=== PATIENT | female | born 1950 | race Caucasian/White ===

== ENCOUNTER 2023-05-03 20:29 | Emergency (ER) | payer OTHER, SELFPAY ==
[2023-05-03 20:31] VITALS: BMI 45.0
[2023-05-03 20:36] VITALS: BP 134/69
[2023-05-03 20:52] LABS: % Basophils 0.5 % (0-2); % Eosinophils 2.6 % (0-6); % Immature Granulocytes 0.4 % (0-0.5); % Lymphocytes 17.6 % (20.5-51.1); % Monocytes 8.3 % (1.7-9.3); % Neutrophils 70.6 % (42.2-75.2); Absolute Basophils 0.1 10^3/uL (0-0.2); Absolute Eosinophils 0.2 10^3/uL (0-0.7); Absolute Lymphocytes 1.6 10^3/uL (1.2-3.4); Absolute Monocytes 0.8 10^3/uL (0.1-0.6); Absolute Neutrophils 6.5 10^3/uL (1.4-6.5); Hematocrit 38.5 % (37.0-47.0); Hemoglobin 13.7 g/dL (12.0-16.0); Mean Corp Hgb Conc. 35.6 g/dL (33.0-37.0); Mean Corpuscular Hgb 33.3 pg (27.0-31.0); Mean Corpuscular Volume 93.4 fL (81.0-99.0); Mean Platelet Volume 10.8 fL (7.4-10.4); Nucleated Red Blood Cells % 0 %; Platelet Count 278 10^3/uL (130-400); Red Blood Cell Count 4.12 10^6/uL (4.20-5.40); Red Cell Dist. Width 12.9 % (11.5-14.5); White Blood Cell Count 9.2 10^3/uL (4.8-10.8)
[2023-05-03 21:00] VITALS: BP 127/60
[2023-05-03 21:11] LABS: ALT (SGPT) 22 U/L (0-35); AST (SGOT) 30 U/L (14-36); Albumin 3.8 g/dl (3.5-5.0); Alkaline Phosphatase 54 U/L (38-126); Blood Urea Nitrogen 31 mg/dl (7-17); Calcium 8.9 mg/dl (8.4-10.2); Carbon Dioxide 26 mmol/L (22-30); Chloride 100 mmol/L (98-107); Estimated Creatinine Clearance 67 ml/min; Glucose 175 mg/dl (70-99); Sodium 138 mmol/L (135-145); Total Bilirubin 0.4 mg/dl (0.2-1.3); Total Protein 6.8 g/dl (6.3-8.2); eGFR > 60.00
[2023-05-03 22:00] VITALS: BP 132/70
--- NOTE | 2023-05-03 22:29 | ED.GENMED ---
History of Present Illness
General
Chief Complaint: Fainting/Passed Out
Source: patient and family
Exam Limitations: none
Time Seen by Provider: 05/03/23 22:17
Travel History
Have you had any contact with someone who has COVID-19?: No
Do you have any symptoms of coronavirus? Fever > 100 degrees, chills, cough, shortness of breath, sore throat, loss of taste or smell, muscle aches, or headache?: No
History of Present Illness
History of Present Illness:
See MDM
Past History
Past History
ED Past Medical History: HTN, Hypercholesterolemia and Hypothyroidism
ED Past Surgical History: Orthopedic
Social History
Tobacco: Non-smoker
Alcohol: None
Phy Exam
Physical Exam
Physical Exam:
See MDM
Course
Orders/Labs/Results
Orders:
Orders
05/03/23 20:37
Electrocardiogram (*1) Urgent
Reason for Study: Syncope
EKG- Treatment ONCE
05/03/23 20:40
CMP [Comprehensive Metabolic Panel] Urgent
Complete Blood Count/With Diff Urgent
05/03/23 21:40
Troponin I Urgent
05/03/23 22:28
0.9% Sodium Chloride 1000 ml [Nss] 1,000 ml IV BOLUS
Abdomen Xray - 1 View [CR Abdomen - 1 View] Urgent
Comment:
Reason For Exam: intermittent diarrhea and constipation
Abnormal Lab Results
05/03/23
20:40
RBC 4.12 L 10^6/uL
(4.20-5.40)
MCH 33.3 H pg
(27.0-31.0)
MPV 10.8 H fL
(7.4-10.4)
Absolute Monos (auto) 0.8 H 10^3/uL
(0.1-0.6)
Lymphocytes % 17.6 L %
(20.5-51.1)
BUN 31 H mg/dl
(7-17)
Glucose 175 H mg/dl
(70-99)
05/03/23 20:40
05/03/23 20:40
Vital Signs
Initial and Last Documented VS:
Initial Vital Signs
Temp Pulse Resp Pulse Ox
98.1 F 65 18 99
05/03/23 20:31 05/03/23 20:31 05/03/23 20:31 05/03/23 20:31
Last Documented Vital Signs
Temp Pulse Resp BP Pulse Ox
98.1 F 62 18 132/70 96
05/03/23 20:31 05/03/23 22:45 05/03/23 22:45 05/03/23 22:00 05/03/23 22:45
MDM/Problems Addressed
Differential Diagnosis Includes:
HPI and MDM Narrative:
72-year-old female presenting with syncopal event. This occurred while she was on the bathroom. She has been dealing with intermittent diarrhea past week or so. Family noticed that she was pale. She came to in a minute or 2. Patient denying any
chest pain or shortness of breath or palpitations. Family believes that she is not drinking enough water.
On exam, she is well-appearing nontoxic. She is mildly dehydrated. Will give IV fluids. Given syncopal event, will add troponin. Given the intermittent constipation and diarrhea, will obtain x-ray to look for large stool burden
Physical exam
General: Well appearing and non-toxic
HEENT: protecting airway. Dry mucous membranes
Neck: appears supple
CV: No evidence of cyanosis. Regular rate and rhythm
Resp: No accessory muscle use
Abd: Non-distended and nontender
Extremities: No deformities
Neuro: alert
Psych: Normal affect
Skin: Intact
Problems Addressed including Acute and Chronic Conditions affecting care:
1. Syncope
Acuity: acute
Prognosis: stable
Details: Likely vasovagal. EKG within normal limits. Will obtain troponin
2. Dehydration
Acuity: acute
Prognosis: stable
Details: Will provide IV fluids. I did encourage increased p.o. fluid intake at home
3. Diarrhea
Acuity: acute
Prognosis: stable
Details: Will obtain x-ray looking for any evidence of constipation given increased use of Imodium
Updates
Troponin negative. Abdominal x-ray shows stool in the ascending colon. We discussed taking Metamucil and refraining from too much Imodium
I discussed having her blood sugar reevaluated by PCP
Differential Diagnosis (but not limited to): Constipation, dehydration, orthostasis
Testing considered: CT abdomen/pelvis but no tenderness elicited
Drug therapy (if applicable): OTC meds, please see d/c instruction regarding Rx drugs
Amount and/or Complexity of Data Reviewed
Clinical info obtained from: Patient
External data reviewed: N/A
Labs I independently reviewed (but not limited to): Mild hyperglycemia, troponin normal
Radiology: X-ray independently reviewed: No large stool burden noted on abdominal x-ray
Pulse Ox: not hypoxic
EKG independently reviewed: Sinus rhythm, normal axis, no STEMI
Automation Technologist: Sinus rhythm
Critical Care: N/A
Risk of Complication:
Social Determinants of health: Good social support
Discussed with other providers: N/A
Escalation of Care includes Admit/Obs: After being observed in the Emergency Department, pt stable for discharge.
Occasional wrong word or 'sound a like' substitutions may have occurred due to the inherent limitations of voice recognition software. Read the chart carefully and recognize, using context, where substitutions have occurred.
*Critical Care Note
Total Time (30-74mins, 75-104mins- exclusive of procedures): Not Applicable
ED Attending Note
-
Portions of this chart may have been created with voice recognition software.� Occasional wrong word or��sound alike� substitutions may have occurred due to the inherent limitations of voice recognition software.
Discharge Plan
Departure
Patient Disposition: Home (Routine Discharge)
Date of Disposition: 05/03/23
Time of Disposition: 23:31
Patient with high blood pressure during this ER visit?: No
Discharge Problem:
Syncope, Dehydration
Instructions: Syncope (Fainting) (DC)
Referrals:
Satya Amado MD [Family Provider] -
Activity Restrictions/Additional Instructions:
Please return for any worsening symptoms.
You may return at any time if you have further concerns.
Please follow up with your doctor at the first available appointment, preferably this week.
Please start taking Metamucil to help with your stools.
Thank you for choosing [facility].
Interventions
Interventions:
*Risk Screen - Suicide Last Done: 05/03/23 20:31
*General Assessment Last Done: 05/03/23 20:31
*Neglect/Abuse Screening Last Done: 05/03/23 20:31
ED- Fall Risk Assessment Last Done: 05/03/23 22:10
*ED COVID-19 Vaccine History Last Done: 05/03/23 20:31
ED- Cardiac Assessment Last Done: 05/03/23 22:10
ED- Neurological Assessment Last Done: 05/03/23 22:10
[2023-05-03] MEDS: NSS 1000 IV (22:50)
[2023-05-03 23:00] VITALS: BP 139/78
[2023-05-03 23:12] LABS: Troponin I < 0.012 ng/ml
== END 2023-05-03 23:52 | disposition home or self-care (01) ==
LOC: EMR 20:29
PROVIDERS: Emergency Medicine; EMERGENCY PHYSICIAN Student in an Organized Health Care Education/Training Program; FAMILY PHYSICIAN Internal Medicine
DX: R55 Syncope and collapse (principal); E86.0 Dehydration; I10 Essential (primary) hypertension; E78.00 Pure hypercholesterolemia, unspecified; E03.9 Hypothyroidism, unspecified
CPT/HCPCS: 99283; 96360; 74018; 80053; 84484; 85025; 93005

== ENCOUNTER 2023-07-29 14:15 | Inpatient (IN) | payer OTHER, SELFPAY ==
[2023-07-29] VITALS (7 sets, daily range): BP systolic 122–147; BP diastolic 67–86; BMI 43.7
--- NOTE | 2023-07-29 13:10 | ED.GENMED ---
History of Present Illness
General
Chief Complaint: Breathing Problem
Source: patient and family
Time Seen by Provider: 07/29/23 12:53
Travel History
Have you had any contact with someone who has COVID-19?: No
Do you have any symptoms of coronavirus? Fever > 100 degrees, chills, cough, shortness of breath, sore throat, loss of taste or smell, muscle aches, or headache?: No
History of Present Illness
History of Present Illness:
72-year-old female with past medical history of hypertension, hyperlipidemia, hypothyroidism, psoriasis presenting to the emergency department for evaluation of fever, lightheadedness, cough and shortness of breath with symptoms that started this
past , went to urgent care yesterday and was diagnosed with pneumonia. Patient was started on Augmentin, albuterol and benzonatate but has not had any relief. Family reports patient's pulse ox this morning was 88% on room air prompting
them to bring her to the ER today. Patient is on an immunosuppressant for her psoriasis which she gets once monthly injections. She was unaware of any fevers at home but did have a temperature of 99.9 while in triage. No abdominal pain, nausea,
vomiting, urinary symptoms or any other concerns presently. Of note, patient did have COVID at the beginning of June.
Past History
Past History
ED Past Medical History: HTN, Hypercholesterolemia and Hypothyroidism
ED Past Surgical History: Appendectomy, Orthopedic and Other
Social History
Tobacco: Non-smoker
Alcohol: None
Drug: None
Personal:
Living: with family
Review of Systems
Review of Systems
All Other Systems: ROS reviewed and negative except as documented in HPI and ROS
Phy Exam
Physical Exam
Physical Exam:
GENERAL: Alert , in no apparent distress
Head: Normocephalic/atraumatic
EYE: conjunctiva clear
NECK: Supple
ENT: o/p clr, mmm.
CARDIAC: Regular rate and rhythm
LUNGS: Clear breath sounds bilaterally, no acute respiratory distress, no wheezes/rales/rhonchi, O2 sat between 91 and 93% on room air, 96% on 2 L
NEUROLOGICAL: Alert and oriented
SKIN: Hot to the touch, dry, skin intact.
MUSCULOSKELETAL: well perfused.
PSYCH: Normal and appropriate interaction.
Scores
Heart Failure Risk
Heart Failure Risk Score: Not Applicable
Heart Score for Chest Pain Patients
STEMI patient?: Not applicable
Withdrawal Assessment of Alcohol
Withdrawal Assessment Completed?: Not applicable
Course
Orders/Labs/Results
Orders:
Orders
07/29/23 12:55
CR Chest - 2 Views Urgent
Comment:
Reason For Exam: SOB, fever
07/29/23 12:56
Acetaminophen [Tylenol] 650 mg PO NOW STA
07/29/23 13:02
Basic Metabolic Panel Urgent
Complete Blood Count/With Diff Urgent
Lactic Acid Q4H
Comment: CANCEL 2nd LACTIC ACID IF 1st LACTIC ACID IS LESS THAN 2
Blood Culture Q30M
MAYRA Source: Blood/Venous
Specimen Description:
Influenza A+B Rapid Molecular Urgent
MAYRA Source: Nasal Swab
Specimen Description:
07/29/23 13:03
COVID-19 Antigen Urgent
Source: Nasal Swab
07/29/23 13:21
Blood Culture Q30M
MAYRA Source: Blood/Venous
Specimen Description:
07/29/23 13:37
0.9% Sodium Chloride 1000 ml [Nss] 1,000 ml IV BOLUS
07/29/23 14:03
CefTRIAXone [Rocephin] 1,000 mg IV NOW STA
Doxycycline [Vibramycin] 100 mg PO NOW STA
07/29/23 14:09
Admit/Transfer Patient As Directed
Co-Sign Provider:
Level of Care: Inpatient admission
Assign to:: Medical/Surgical
Physician / Group: Hospitalist
Diagnosis: Pneumonia
Reason for Hospitalization: .
Expected length of stay greater than two midnights?: Yes
ELOS- Estimated Length of Stay in days: 3
I certify the patient meets the requirements for IP care: Yes
07/29/23 17:00
Lactic Acid Q4H
Comment: CANCEL 2nd LACTIC ACID IF 1st LACTIC ACID IS LESS THAN 2
Abnormal Lab Results
07/29/23
13:02
RBC 4.01 L 10^6/uL
(4.20-5.40)
MCH 32.7 H pg
(27.0-31.0)
MPV 10.9 H fL
(7.4-10.4)
Absolute Lymphs (auto) 0.8 L 10^3/uL
(1.2-3.4)
Absolute Monos (auto) 0.9 H 10^3/uL
(0.1-0.6)
Lymphocytes % 11.5 L %
(20.5-51.1)
Monocytes % 12.4 H %
(1.7-9.3)
BUN 22 H mg/dl
(7-17)
Glucose 183 H mg/dl
(70-99)
Lactic Acid 2.2 H mmol/L
(0.7-2.0)
07/29/23 13:02
07/29/23 13:02
Vital Signs
Initial and Last Documented VS:
Initial Vital Signs
Temp Pulse Resp BP Pulse Ox
99.9 F 77 18 139/86 93
07/29/23 12:37 07/29/23 12:37 07/29/23 12:37 07/29/23 12:37 07/29/23 12:37
Last Documented Vital Signs
Temp Pulse Resp BP Pulse Ox
99.9 F 75 16 126/67 93
07/29/23 12:37 07/29/23 12:52 07/29/23 12:52 07/29/23 12:52 07/29/23 12:52
MDM/Problems Addressed
Differential Diagnosis Includes:
Pneumonia, COVID, flu, viral syndrome 72-year-old female presenting to the emergency department for evaluation of cough, low-grade fever, hypoxia and generally feeling unwell x 4 days. Diagnosed with pneumonia at urgent care yesterday although
patient's daughter states the radiologist did not feel there were signs of pneumonia on the chest x-ray. No medications were given prior to arrival outside of the antibiotics. Tylenol ordered for fever. Patient to remain on 2 L for her mild
hypoxia. Will check cultures and lactic acid given patient is on an immunosuppressant agent. Anticipate admission. Family is agreeable with plan.
Chronic conditions affecting care: Immunosuppressed
Acute Exacerbation and/or Progression of Chronic Illness: Immunosuppressed
*Radiology
Radiology exam reviewed: preliminary read by ED provider (Mildly hypoinflated but no gross consolidation)
*Pulse Oximetry
Patient hypoxic: no
*Tanning Salon Attendant Interpretation
Rate: normal
Rhythm: sinus
*Critical Care Note
Total Time (30-74mins, 75-104mins- exclusive of procedures): Not Applicable
Patient Management
Discussion with other providers: Hospitalist
Escalation/DeEscalation of care consider admission/obs:
Patient remains stable on 2 L via nasal cannula. Labs largely unremarkable the patient does have a slight elevation in her lactic acid. Will treat with 1 L IV fluids. Given her immunocompromise state combined with her current fever and need for
supportive care on oxygen will admit for antibiotics and monitoring. Hospitalist team is aware and accepts for continued evaluation and treatment.
ED Attending Note
-
Portions of this chart may have been created with voice recognition software.� Occasional wrong word or��sound alike� substitutions may have occurred due to the inherent limitations of voice recognition software.
Discharge Plan
Departure
Patient Disposition: Admit
Date of Disposition: 07/29/23
Time of Disposition: 14:05
Presentation/result/management discussed w/ accepting MD/DO: Hospitalist
Discharge Problem:
Pneumonia
Referrals:
Satya Amado MD [Family Provider] -
Interventions
Interventions:
*Risk Screen - Suicide Last Done: 07/29/23 12:37
*General Assessment Last Done: 07/29/23 12:37
*Neglect/Abuse Screening Last Done: 07/29/23 12:37
*ED COVID-19 Vaccine History Last Done: 07/29/23 12:37
ED- Cardiac Assessment Last Done: 07/29/23 12:53
ED- Pulmonary Assessment Last Done: 07/29/23 12:53
Discharge Date and Time
Print Language: GUINEAN
[2023-07-29] MEDS: TYLENOL 650 MG PO (13:18)
[2023-07-29 13:20] LABS: % Basophils 0.6 % (0-2); % Immature Granulocytes 0.4 % (0-0.5); % Lymphocytes 11.5 % (20.5-51.1); % Monocytes 12.4 % (1.7-9.3); % Neutrophils 74.1 % (42.2-75.2); Absolute Eosinophils 0.1 10^3/uL (0-0.7); Absolute Lymphocytes 0.8 10^3/uL (1.2-3.4); Absolute Monocytes 0.9 10^3/uL (0.1-0.6); Absolute Neutrophils 5.3 10^3/uL (1.4-6.5); Hemoglobin 13.1 g/dL (12.0-16.0); Mean Corp Hgb Conc. 35.4 g/dL (33.0-37.0); Mean Corpuscular Hgb 32.7 pg (27.0-31.0); Mean Corpuscular Volume 92.3 fL (81.0-99.0); Mean Platelet Volume 10.9 fL (7.4-10.4); Nucleated Red Blood Cells % 0 %; Platelet Count 235 10^3/uL (130-400); Red Blood Cell Count 4.01 10^6/uL (4.20-5.40); Red Cell Dist. Width 12.4 % (11.5-14.5); White Blood Cell Count 7.2 10^3/uL (4.8-10.8)
[2023-07-29 13:29] LABS: Lactic Acid 2.2 mmol/L (0.7-2.0)
[2023-07-29 13:33] LABS: COVID-19 Antigen Negative (Negative)
[2023-07-29 13:49] LABS: Blood Urea Nitrogen 22 mg/dl (7-17); Calcium 8.7 mg/dl (8.4-10.2); Carbon Dioxide 24 mmol/L (22-30); Chloride 101 mmol/L (98-107); Glucose 183 mg/dl (70-99); Potassium 3.7 mmol/L (3.5-5.1); Sodium 136 mmol/L (135-145); eGFR > 60.00
[2023-07-29] MEDS: NSS 1000 IV (13:49)
--- NOTE | 2023-07-29 14:09 | HPS.HSE ---
Family Physician
-
Family Physician: Satya Amado
Chief Complaint
-
Cough and hypoxia for few days during
History of Present Illness
72 years old female came in from home. Patient started to have cough and weakness 3-4 days ago. Her granddaughter who lives at home with her had cold-like symptoms a week ago. Patient went to urgent care and was given albuterol with Augmentin.
Patient took the medicine but did not feel much better. She continued to have yellowish colored sputum with cough. She had muscle aches and was found to have hypoxia with oxygen saturation around 88 to 87% at home. Patient denied chest pain. She
reported mild shortness of breath. She was brought into the emergency room was found to have mild lactic acidosis, she had low-grade temperature around 99.9. No GI symptoms.
Medical History
Past Medical History
Past Medical History: Reports Other (Psoriasis, hypertension, hyperlipidemia, hypothyroidism)
Past Surgical History: Reports Other (No recent major surgery)
Social History
Alcohol: None
Drug: None
Living: With Family
Employment: Retired
Family History
Family History: Not pertinent
Allergies / Home Medications
Allergies reflects when Allergies were last updated in [employer].
Home Medications with original date entered in [employer]
Allergy/Medication List:
Allergies
Allergy/AdvReac Type Severity Reaction Status Date / Time
No Known Allergies Allergy Verified 07/29/23 12:36
Home Medications
albuterol sulfate 90 mcg/actuation aerosol inhaler (ProAir HFA) 2 puff inhalation R Q6HPRN PRN sob 07/29/23
amlodipine 5 mg tablet (Norvasc) 5 mg PO BID Blood Pressure 07/29/23
amoxicillin 875 mg-potassium clavulanate 125 mg tablet 1 tab PO BID Infection 07/29/23
atorvastatin 20 mg tablet (Lipitor) 20 mg PO DAILY High Cholesterol 07/29/23
benzonatate 200 mg capsule 200 mg PO TIDPRN PRN cough 07/29/23
celecoxib 200 mg capsule 200 mg PO BID Pain 07/29/23
levothyroxine 137 mcg tablet (Synthroid) 137 mcg PO DAILY Thyroid 07/29/23
losartan 100 mg-hydrochlorothiazide 25 mg tablet 1 tab PO DAILY Blood Pressure 07/29/23
metoprolol succinate 100 mg tablet,extended release 24 hr (Toprol XL) 100 mg PO DAILY Blood Pressure 07/29/23
secukinumab 150 mg/mL subcutaneous syringe (Cosentyx) 150 mg SC Q4W psoriasis 07/29/23
Review of Systems
-
History Source: Patient
A 12 point ROS was completed and negative except as noted: Yes
Constitutional: Reports Chills
EENT: Denies Sore Throat or Runny Nose
Respiratory: Reports Cough and Trouble Breathing
Cardiac: Denies Chest Pain
Abdomen/GI: Denies Abdominal Pain
: Denies Dysuria
Musculoskeletal: Reports Joint Pain and Muscle Pain; Denies Joint Swelling
Skin: Denies Itching
Neurological: Reports Weakness; Denies Headache
Endocrine: Denies Temp Intolerance
Hematologic/Lymphatic: Denies Bruising
Psych: Denies Panic Disorder
Physical Exam
Vital Signs
Vital Signs
Temp Pulse Resp BP Pulse Ox
99.9 F 75 16 126/67 93
07/29/23 12:37 07/29/23 12:52 07/29/23 12:52 07/29/23 12:52 07/29/23 12:52
Physical Exam
General: No Apparent Distress, Conversant and Obese
HEENT: Moist mucous membranes and Atraumatic
Respiratory: Rales (At bilateral bases) and Decreased Breath Sounds; No Wheezes
Cardiac: S1/S2 and Regular Rhythm
GI: Soft, Non Tender and Non Distended
Rectal: No Maroon Stools
Genito-urinary: No costovertebral tender; No Drake
Musculoskeletal: No Clubbing, No Cyanosis and No Edema
Skin: Warm; No Jaundice
Neuro: AO x 3 and Nonfocal/grossly intact; No Slurred Speech or Tremors
Psych: Calm and Intact Judgment/Insight
Laboratory Results
-
07/29/23 13:02
07/29/23 13:02
Laboratory Results
Lactic Acid 2.2 mmol/L (0.7-2.0) H 07/29/23 13:02
Impression/Plan
-
72 years old female presented with pneumonia that failed outpatient treatment
#Community-acquired pneumonia
Patient presented with cough, shortness of breath, sputum production, low-grade temperature with chills at home.
Low oxygen saturation 93% on arrival but reportedly was 87% at home
Currently she is not in distress.
Admit the patient to the
Continue with intravenous Rocephin and Doxy start
Do blood culture
Negative COVID and influenza screen
Tessalon and Robitussin for cough
Tylenol for muscle aches/fevers
Monitor temperature curve, oxygen saturation
CAT scan of the chest to determine severity of pneumonia as chest x-ray did not show definitive infiltrate/consolidation
# Hypoxia only.
Will monitor oxygen saturation
# History of psoriasis. Reportedly only skin involvement with no joints.
#Primary hypertension, continue bloody pain, metoprolol. Monitor and put holding parameters for hypotension
#Hyperlipidemia, no changes intended
Hypothyroidism, no changes intended
#Lactic acidosis, trend lactic acid. Continue to treat pneumonia
#DVT prophylaxis
#Obesity
Total time spent to see the patient, examine the patient on the floor, review data and lab results, discuss treatment plan with patient, family at bedside, ER doctor, nursing staff around 75 minutes
--- NOTE | 2023-07-29 14:11 | EDRN ---
Pt tried to get out of bed while father left the room. This nurse found patient standing at the side of the bed. Pt advised that he needs to stay in bed due to his weakness, but he states he wants to be out of bed. Pt directed back into bed by
staff, told to use call segal and not get up again. Father back at bedside. Pt advised that he is a fall risk and not to try and get up without assistance. Pt verbalizes understanding.
[2023-07-29] MEDS: ROCEPHIN 1000 MG IV (14:19)
[2023-07-29] MEDS: VIBRAMYCIN 100 MG PO (14:19)
--- NOTE | 2023-07-29 14:21 | PHANOTE ---
Med Rec Note- patient stated she takes lorazepam every morning but no pharmacy or ecw or pdmp records.
[2023-07-29] MEDS: TESSALON PERLES 200 MG PO ×2 (16:03→23:20)
[2023-07-29 18:36] LABS: NT-proBNP 363 pg/ml
[2023-07-29] MEDS: CELEBREX 200 MG PO (19:41)
[2023-07-29] MEDS: HEPARIN 5000 UNITS SC (19:41)
[2023-07-29] MEDS: NORVASC 5 MG PO (19:42)
[2023-07-29] MEDS: TYLENOL 1000 MG PO (19:49)
[2023-07-30] MEDS: SYNTHROID 137 MCG PO (05:48)
[2023-07-30 05:56] LABS: Hematocrit 35.4 % (37.0-47.0); Hemoglobin 12.3 g/dL (12.0-16.0); Mean Corp Hgb Conc. 34.7 g/dL (33.0-37.0); Mean Corpuscular Hgb 32.9 pg (27.0-31.0); Mean Corpuscular Volume 94.7 fL (81.0-99.0); Mean Platelet Volume 11.1 fL (7.4-10.4); Platelet Count 200 10^3/uL (130-400); Red Blood Cell Count 3.74 10^6/uL (4.20-5.40); Red Cell Dist. Width 12.3 % (11.5-14.5); White Blood Cell Count 4.8 10^3/uL (4.8-10.8)
[2023-07-30 07:00] VITALS: BP 130/63
[2023-07-30 07:02] LABS: Blood Urea Nitrogen 23 mg/dl (7-17); Calcium 8.1 mg/dl (8.4-10.2); Carbon Dioxide 27 mmol/L (22-30); Chloride 103 mmol/L (98-107); Estimated Creatinine Clearance 96 ml/min; Glucose 118 mg/dl (70-99); Potassium 3.6 mmol/L (3.5-5.1); Sodium 137 mmol/L (135-145); eGFR > 60.00
[2023-07-30] MEDS: VIBRAMYCIN 100 MG PO ×2 (07:58→20:14)
[2023-07-30] MEDS: TESSALON PERLES 200 MG PO ×3 (07:59→21:35)
[2023-07-30] MEDS: TOPROL XL 100 MG PO (07:59)
[2023-07-30] MEDS: LIPITOR 20 MG PO (07:59)
[2023-07-30] MEDS: CELEBREX 200 MG PO ×2 (07:59→20:14)
[2023-07-30] MEDS: NORVASC 5 MG PO ×2 (07:59→20:14)
[2023-07-30] MEDS: HEPARIN 5000 UNITS SC ×2 (08:00→20:14)
[2023-07-30] MEDS: SOLU-MEDROL PF 40 MG IV (08:46)
--- NOTE | 2023-07-30 11:12 | W.PN.HOSP.TC ---
Today's Communication/Plan
-
.
Assessment / Plan
Assessment / Plan
Physical Exam
General: No Apparent Distress, Conversant and Obese
HEENT: Moist mucous membranes and Atraumatic
Respiratory: mild expiratory wheezes.
Cardiac: S1/S2 and Regular Rhythm
GI: Soft, Non Tender and Non Distended
Rectal: No Maroon Stools
Genito-urinary: No costovertebral tender; No Drake
Musculoskeletal: No Clubbing, No Cyanosis and No Edema
Skin: Warm; No Jaundice
Neuro: AO x 3 and Nonfocal/grossly intact; No Slurred Speech or Tremors
Psych: Calm and Intact Judgment/Insight
72 years old female presented with pneumonia that failed outpatient treatment
# Acute viral bronchitis
Positive sick contact
still cough but no sob
Will c/w Tessalon
Add IV Steroid to help with cough and wheezes.
Empiric ABx
Wean off O2
Normal Pro-BNP, will check echo
# Hypoxia only.
Wean off O2
# History of psoriasis. Reportedly only skin involvement with no joints.
#Primary hypertension, continue Amlodipine, metoprolol. Monitor and put holding parameters for hypotension
#Hyperlipidemia, no changes intended
Hypothyroidism, no changes intended
#Lactic acidosis, lactic acid came down to normal .
#DVT prophylaxis
#Obesity
Total time spent to see the patient, examine the patient on the floor, review data and lab results, discuss treatment plan with patient, family, nursing staff around 59 minutes
Anticipated Discharge: 24 - 48 hours
Subjective/Interval History
-
Date of Service: July 30, 2023
No chest pain
No sob
Less cough, reports mild wheezes.
Objective Data
-
Labs:
Laboratory Results
07/30/23
05:45
WBC 4.8
Hgb 12.3
Hct 35.4 L
Plt Count 200
Sodium 137
Potassium 3.6
Chloride 103
Carbon Dioxide 27
BUN 23 H
Creatinine 0.6
Glucose 118 H
Calcium 8.1 L
Vital Signs:
Vital Signs
Temp Pulse Resp BP Pulse Ox
98.2 F 68 18 130/63 98
07/30/23 07:00 07/30/23 07:59 07/30/23 07:00 07/30/23 07:59 07/30/23 07:00
I&O
07/29/23 07/30/23 07/31/23
06:59 06:59 06:59
Intake Total 600 / 600
Balance 600 / 600
[2023-07-30] MEDS: STERILE WATER FOR INJECTION 10 ML IV (14:17)
[2023-07-30] MEDS: ROBITUSSIN DM 10 ML PO (14:17)
[2023-07-30] MEDS: ROCEPHIN 1000 MG IV (14:21)
--- NOTE | 2023-07-30 15:22 | CM ---
Pt off unit. Met with pts daughter and granddaughter at bedside
Pt lives with her daughter and granddaughter in a one story home
Independent, ambulates with cane or rolling walker
DME - rolling walker, cane
SNF - [facility] in Past
HH - [facility] in past
Has ride when d/c'ed with daughter
PCP - Dr Ronnell Cortés
Pharm - [facility]
CM will follow for d/c needs
Plan - anticipate home no needs
--- NOTE | 2023-07-30 15:47 | CARDSERVLU ---
Echocardiogram with Lumason completed after protocol screening completed. Allergies verified.
Patent IV site: __Right hand site clear___
IV site flushed with 0.9% NaCl pre and post administration.
Diluted bolus method utilized to enhance visualization of ventricular roca.
Total volume given: __4__ mL
Patient tolerated all procedures well without complications.
[2023-07-30] MEDS: ProAIR HFA INHALER 2 PUFF INH (19:19)
[2023-07-30 23:05] VITALS: BP 137/80
[2023-07-31] MEDS: MELATONIN 5 MG PO ×2 (00:16→22:53)
[2023-07-31] MEDS: SYNTHROID 137 MCG PO (05:30)
[2023-07-31 07:30] VITALS: BP 133/66
[2023-07-31] MEDS: XOPENEX 0.63 MG INHALANT SOLUTION 0.630000000000000004 MG INH ×3 (08:49→19:40)
[2023-07-31] MEDS: VIBRAMYCIN 100 MG PO ×2 (08:51→20:00)
[2023-07-31] MEDS: NORVASC 5 MG PO ×2 (08:51→20:00)
[2023-07-31] MEDS: TOPROL XL 100 MG PO (08:51)
[2023-07-31] MEDS: CELEBREX 200 MG PO ×2 (08:51→20:00)
[2023-07-31] MEDS: TESSALON PERLES 200 MG PO ×3 (08:51→22:53)
[2023-07-31] MEDS: LIPITOR 20 MG PO (08:51)
[2023-07-31] MEDS: MIRALAX 17 GRAMS PO (08:52)
[2023-07-31] MEDS: HEPARIN 5000 UNITS SC ×2 (08:52→20:00)
[2023-07-31] MEDS: DULCOLAX 10 MG PO (08:56)
[2023-07-31] MEDS: ROBITUSSIN DM 10 ML PO ×4 (08:56→22:53)
--- NOTE | 2023-07-31 10:30 | W.PN.HOSP.TC ---
Today's Communication/Plan
-
likely dc in am
Assessment / Plan
Assessment / Plan
Physical Exam
General: No Apparent Distress, Conversant and Obese
HEENT: Moist mucous membranes and Atraumatic
Respiratory: mild expiratory wheezes.
Cardiac: S1/S2 and Regular Rhythm
GI: Soft, Non Tender and Non Distended
Rectal: No Maroon Stools
Genito-urinary: No costovertebral tender; No Drake
Musculoskeletal: No Clubbing, No Cyanosis and No Edema
Skin: Warm; No Jaundice
Neuro: AO x 3 and Nonfocal/grossly intact; No Slurred Speech or Tremors
Psych: Calm and Intact Judgment/Insight
72 years old female presented with pneumonia that failed outpatient treatment
# Acute viral bronchitis
Positive sick contact
No wheezes heard but patient hears wheezes. Clinical features consistent with viral bronchitis
Continue with Tessalon, will make Robitussin [id number]. Will add Xopenex nebulizer to avoid palpitations. Another dose of IV steroid. Continue with empiric antibiotics for total of 5 days.
She is off oxygen now. No fevers. Sputum culture: No growth. Blood culture no growth
Normal Pro-BNP, echocardiogram showed LVEF 60 --65%, no regional wall motion abnormality. Normal diastolic function. Mild aortic stenosis. Mild tricuspid regurgitation.
# Hypoxia only.
Off oxygen now
# Constipation. Will give Dulcolax and MiraLAX
# History of psoriasis. Reportedly only skin involvement with no joints.
#Primary hypertension, continue Amlodipine, metoprolol. Monitor and put holding parameters for hypotension
#Hyperlipidemia, no changes intended
Hypothyroidism, no changes intended
#Lactic acidosis, lactic acid came down to normal .
#DVT prophylaxis
#Obesity
Total time spent to see the patient, examine the patient on the floor, review data and lab results, discuss treatment plan with patient, family, nursing staff around 55 minutes
Anticipated Discharge: Within 24 hours
Subjective/Interval History
-
Date of Service: July 31, 2023
Objective Data
-
Vital Signs:
Vital Signs
Temp Pulse Resp BP Pulse Ox
97.7 F 69 16 133/66 97
07/31/23 07:30 07/31/23 08:53 07/31/23 08:53 07/31/23 07:30 07/31/23 08:53
I&O
07/30/23 07/31/23 08/01/23
06:59 06:59 06:59
Intake Total 600 / 600 1680 / 1680
Balance 600 / 600 1680 / 1680
[2023-07-31] MEDS: TYLENOL 1000 MG PO (10:50)
[2023-07-31] MEDS: SOLU-MEDROL PF 20 MG IV (11:19)
[2023-07-31] MEDS: ROCEPHIN 1000 MG IV (14:33)
[2023-07-31] MEDS: STERILE WATER FOR INJECTION 10 ML IV (14:34)
--- NOTE | 2023-07-31 15:09 | CM ---
Case management following for d/c planning
Reviewed chart
Remains on steroids
Prob d/c tomorrow
CM to follow for needs
Plan - home no needs
[2023-07-31 15:15] VITALS: BP 122/67
[2023-07-31 23:00] VITALS: BP 150/83
[2023-08-01 06:00] VITALS: BMI 45.2
[2023-08-01] MEDS: SYNTHROID 137 MCG PO (06:18)
[2023-08-01] MEDS: ROBITUSSIN DM 10 ML PO (06:19)
[2023-08-01 07:00] VITALS: BP 154/73
[2023-08-01] MEDS: XOPENEX 0.63 MG INHALANT SOLUTION 0.630000000000000004 MG INH (07:52)
[2023-08-01] MEDS: NORVASC 5 MG PO (08:12)
[2023-08-01] MEDS: LIPITOR 20 MG PO (08:12)
[2023-08-01] MEDS: CELEBREX 200 MG PO (08:13)
[2023-08-01] MEDS: VIBRAMYCIN 100 MG PO (08:13)
[2023-08-01] MEDS: TESSALON PERLES 200 MG PO (08:13)
[2023-08-01] MEDS: TOPROL XL 100 MG PO (08:13)
[2023-08-01] MEDS: DULCOLAX PO (08:14)
[2023-08-01] MEDS: SOLU-MEDROL PF 20 MG IV (08:14)
[2023-08-01] MEDS: MIRALAX PO (08:14)
[2023-08-01] MEDS: HEPARIN 5000 UNITS SC (08:15)
--- NOTE | 2023-08-01 10:47 | W.DCSUMMARY ---
Discharge Summary
Discharge Data
Date of Admission: 07/29/23
Date of Discharge: 08/01/23
-
Pending Results: No
Hospital Course
72 years old female presented with cough and shortness of breath. Patient had sick contact at home that week before coming to the hospital. She went to urgent care and was given albuterol and oral antibiotic. She continued to have cough. In
the emergency room. She did not have significant respiratory distress. She did not have fever or leukocytosis. She had scan of the chest that did not show pneumonia or infiltrate. Patient was diagnosed with acute viral bronchitis. She was given
empiric antibiotic, nebulizer treatment and cough medicine. Patient complained of wheezing and was given short course of steroid therapy. She did not have hypoxia. She had mild lactic acidosis but normalized after receiving intravenous fluid.
Blood cultures showed no growth. Sputum culture showed no growth. She did not have fevers. She had normal pro BNP. Echocardiogram showed normal left ventricular ejection fraction of 60 to 65% with no regional wall motion abnormality, normal
diastolic function, mild aortic stenosis, mild tricuspid regurgitation. Patient remained hemodynamically stable. She tolerated diet. She was able to ambulate without hypoxia. Patient was discharged home in a stable condition.
Physical Exam
General: No Apparent Distress, Conversant and Obese
HEENT: Moist mucous membranes and Atraumatic
Respiratory: No expiratory wheezes
Cardiac: S1/S2 and Regular Rhythm
GI: Soft, Non Tender and Non Distended
Rectal: No Maroon Stools
Genito-urinary: No costovertebral tender; No Drake
Musculoskeletal: No Clubbing, No Cyanosis and No Edema
Skin: Warm; No Jaundice
Neuro: AO x 3 and Nonfocal/grossly intact; No Slurred Speech or Tremors
Psych: Calm and Intact Judgment/Insight.
Total discharge time spent to see the patient, examine the patient on the floor, review data and lab results, discuss discharge plan with patient, nursing staff around 65 minutes
Discharge Plan
-
Patient Disposition: Home with Home Care
Discharge Diagnosis/Procedures: Acute viral bronchitis
You are given nebulizer treatment, antibiotics, steroid and cough medicine.
CAT scan of the chest did not show pneumonia. You had echocardiogram that showed normal left ventricular function with left ventricular ejection fraction 60 - 65%. Normal diastolic function, normal right ventricular size, mild aortic stenosis,
mild tricuspid regurgitation. Blood culture showed no growth. Sputum culture no growth.
Diet: As tolerated
Referrals:
Satya Amado MD [Family Provider] - in one to two weeks
Prescriptions:
New
prednisone 20 mg tablet
20 mg PO DAILY Qty: 3 0RF
benzonatate 200 mg capsule
200 mg PO TID Qty: 30 0RF
cefdinir 300 mg capsule
300 mg PO BID Qty: 6 0RF
Continued
celecoxib 200 mg Capsule
200 mg PO BID
levothyroxine [Synthroid] 137 mcg Tablet
137 mcg PO DAILY
atorvastatin [Lipitor] 20 mg Tablet
20 mg PO DAILY
benzonatate 200 mg Capsule
200 mg PO TIDPRN PRN (Reason: cough)
metoprolol succinate [Toprol XL] 100 mg Tablet Extended Release 24 Hr
100 mg PO DAILY
amlodipine [Norvasc] 5 mg Tablet
5 mg PO BID
losartan-hydrochlorothiazide 100-25 mg Tablet
1 tab PO DAILY
albuterol sulfate [ProAir HFA] 90 mcg/actuation Hfa Aerosol Inhaler
2 puff INHALATION R Q6HPRN PRN (Reason: sob)
Cosentyx 150 mg/mL Syringe
150 mg SC Q4W
Discontinued
amoxicillin-pot clavulanate [Augmentin] 875-125 mg Tablet
1 tab PO BID
Discharge Orders:
Discharge Patient (As Directed); Ordered 08/01/23
Ordered By: Ismael Palmer
Discharge Date and Time
Print Language: KOREAN
--- NOTE | 2023-08-01 11:07 | CM ---
Case management following for d/c planning
Pt for d/c today
Has ride home with daughter
Discussed IMM
Consulted for /HH - offered choice to pt
Requested [facility] - referral sent in [facility]
Plan - home with [facility]
f - [phone]
[2023-08-01 11:10] VITALS: BP 145/75
== END 2023-08-01 11:26 | disposition home health service (06) | DRG 194 ==
LOC: 3 WEST ACU 14:15
PROVIDERS: Physician Assistant Medical; ADMITTING PHYSICIAN Internal Medicine; EMERGENCY PHYSICIAN Student in an Organized Health Care Education/Training Program; FAMILY PHYSICIAN Internal Medicine
DX: J18.9 Pneumonia, unspecified organism (principal); D84.9 Immunodeficiency, unspecified; E87.20 Acidosis, unspecified; Z11.52 Encounter for screening for COVID-19; I10 Essential (primary) hypertension; E03.9 Hypothyroidism, unspecified; E78.00 Pure hypercholesterolemia, unspecified; J20.8 Acute bronchitis due to other specified organisms
CPT/HCPCS: 71046; 71250; 80048; 83605; 83880; 85025; 85027; 87040; 87070; 87077; 87147; 87205; 87502; 87811; 93306; 94640; 96360; 99285; Q9950

== ENCOUNTER 2024-05-07 10:14 | Emergency (ER) | payer OTHER, SELFPAY ==
[2024-05-07 10:17] VITALS: BP 125/52
[2024-05-07 10:31] VITALS: BMI 43.0
--- NOTE | 2024-05-07 10:43 | ED.GENMED ---
History of Present Illness
General
Chief Complaint: Cough
Source: patient
Exam Limitations: none
Time Seen by Provider: 05/07/24 10:24
Nursing documentation reviewed up to this point in time: agreed with
History of Present Illness
History of Present Illness:
Patient presents to ED secondary to worsening cough and shortness of breath, along with decreased appetite and dizziness over the past 1 week. Patient was evaluated by her primary care physician earlier this week, and was started on inhaler, cough
medicine, and Zithromax, without improvement symptoms. Denies fever or chills. Denies nausea, vomiting, or diarrhea. Denies back pain. Denies leg pain or swelling. Denies recent travel or surgery. Denies sick contact. Denies recent change in
medications or diet. Patient has had number of similar symptoms in the past, per family, requiring admission to the hospital.
Past History
Past History
ED Past Medical History: HTN, Hypercholesterolemia and Hypothyroidism
ED Past Surgical History: Appendectomy, Orthopedic and Other
Social History
Tobacco: Non-smoker
Alcohol: None
Drug: None
Personal:
Living: with family
Review of Systems
Review of Systems
Allergies reviewed?: Yes
All Other Systems: ROS reviewed and negative except as documented in HPI and ROS
Constitutional: Reports no symptoms; Denies fever or chills
Respiratory: Reports cough and trouble breathing
Cardiac: Reports no symptoms
ABD/GI: Reports no symptoms; Denies vomiting or diarrhea
Musculoskeletal: Reports no symptoms; Denies edema
Skin: Reports no symptoms
Neurological: Reports no symptoms
Phy Exam
Physical Exam
Physical Exam:
Physical Exam
General: mild respiratory distress, not acutely ill. weak appearing. afebrile
Head: nc/at. eomi
Neck: supple. no meningeal signs.
Heart: s1/s2 regular rate and rhythm, no murmur.
Lungs: mild respiratory distress. diminished breath sounds bilaterally
Abdomen: normal bowel sounds. not tender.
Neuro: alert and oriented x 3. no focal neurological deficits
Skin: no rash
Psychiatric: well kept. interactive and cooperative
Extremities: no edema. no calf tenderness.
Course
Orders/Labs/Results
Orders:
Orders
05/07/24 10:42
Dexamethasone Sod Phosphate [Decadron] 6 mg IV NOW STA
Guaifenesin/Codeine Solution [Robitussin AC] 10 ml PO NOW STA
Ipratropium/Albuterol Sulfate [Duoneb] 3 ml INH R NOW STA
05/07/24 10:43
CR Chest - 2 Views Urgent
Comment:
Reason For Exam: cough/sob
05/07/24 11:22
Basic Metabolic Panel Urgent
COVID-19 Antigen Urgent
Source: Nasal Swab
Complete Blood Count/With Diff Urgent
Influenza A+B Rapid Molecular Urgent
MAYRA Source: Nasal Swab
Specimen Description:
Respiratory Syncytial Virus Urgent
MAYRA Source: Nasal Swab
Specimen Description:
Date Specimen was Collected: 05/07/24
Time Specimen was Collected: 11:04
05/07/24 13:44
Ipratropium/Albuterol Sulfate [Duoneb] 3 ml INH R NOW STA
Abnormal Lab Results
05/07/24
11:22
MPV 11.0 H fL
(7.4-10.4)
Absolute Lymphs (auto) 1.0 L 10^3/uL
(1.2-3.4)
Absolute Monos (auto) 1.0 H 10^3/uL
(0.1-0.6)
Lymphocytes % 13.7 L %
(20.5-51.1)
Monocytes % 12.9 H %
(1.7-9.3)
BUN 20 H mg/dl
(7-17)
Glucose 115 H mg/dl
(70-99)
05/07/24 11:22
05/07/24 11:22
Vital Signs
Initial and Last Documented VS:
Initial Vital Signs
Temp Pulse Resp BP Pulse Ox
98.1 F 68 16 125/52 94
05/07/24 10:17 05/07/24 10:17 05/07/24 10:17 05/07/24 10:17 05/07/24 10:17
Last Documented Vital Signs
Temp Pulse Resp BP Pulse Ox
98.1 F 69 17 116/49 91
05/07/24 10:17 05/07/24 14:15 05/07/24 14:15 05/07/24 14:00 05/07/24 14:15
MDM/Problems Addressed
MDM/Problems Addressed:
Chest x-ray: No acute findings. Otherwise, patient remains afebrile, hemodynamically stable, and without acute respite distress. Resting pulse ox between 91% and 94% on room air. Patient given DuoNeb treatment, cough syrup, along with IV
steroids, with subjective improvement in symptoms. Discussed treatment options with patient and her daughter, including potential admission. However, at this time with improvement, and stable vital signs, prefers to go home. As such, patient will
be advised to finish Zithromax, started earlier this week, along with prescribed cough medication and steroids, along with PCP follow-up next week. Patient advised to return to ED with worsening symptoms.
*Critical Care Note
Total Time (30-74mins, 75-104mins- exclusive of procedures): Not Applicable
ED Attending Note
-
Portions of this chart may have been created with voice recognition software.� Occasional wrong word or��sound alike� substitutions may have occurred due to the inherent limitations of voice recognition software.
Discharge Plan
Departure
Patient Disposition: Home (Routine Discharge)
Date of Disposition: 05/07/24
Time of Disposition: 14:57
Patient with high blood pressure during this ER visit?: Yes
Condition: Good
Discharge Problem:
Bronchitis
Instructions: Acute Bronchitis, Adult (DC)
Prescriptions:
New
prednisone 50 mg tablet
50 mg PO DAILY Qty: 3 0RF
codeine-guaifenesin [Guaifenesin AC] 10-100 mg/5 mL liquid
5 ml PO Q8HPRN PRN (Reason: Cough) Qty: 120 0RF
No Action
celecoxib 200 mg Capsule
200 mg PO BID
levothyroxine [Synthroid] 137 mcg Tablet
137 mcg PO DAILY
atorvastatin [Lipitor] 20 mg Tablet
20 mg PO DAILY
benzonatate 200 mg Capsule
200 mg PO TIDPRN PRN (Reason: cough)
metoprolol succinate [Toprol XL] 100 mg Tablet Extended Release 24 Hr
100 mg PO DAILY
amlodipine [Norvasc] 5 mg Tablet
5 mg PO BID
losartan-hydrochlorothiazide 100-25 mg Tablet
1 tab PO DAILY
albuterol sulfate [ProAir HFA] 90 mcg/actuation Hfa Aerosol Inhaler
2 puff INHALATION R Q6HPRN PRN (Reason: sob)
Cosentyx 150 mg/mL Syringe
150 mg SC Q4W
prednisone 20 mg tablet
20 mg PO DAILY Qty: 3 0RF
benzonatate 200 mg capsule
200 mg PO TID Qty: 30 0RF
cefdinir 300 mg capsule
300 mg PO BID Qty: 6 0RF
Referrals:
Satya Amado MD [Family Provider] -
Activity Restrictions/Additional Instructions:
As discussed, please follow-up with your primary care physician for reevaluation next week. Your prescriptions have been sent electronically to [facility] pharmacy in [place].
Interventions
Interventions:
*Risk Screen - Suicide Last Done: 05/07/24 10:17
*General Assessment Last Done: 05/07/24 10:32
*Neglect/Abuse Screening Last Done: 05/07/24 10:17
*ED- Fall Risk Assessment Last Done: 05/07/24 10:32
*ED COVID-19 Vaccine History Last Done: 05/07/24 10:32
*Nursing Disposition Last Done: 05/07/24 15:20
ED- Pulmonary Assessment Last Done: 05/07/24 10:33
Discharge Date and Time
Print Language: QATARI
[2024-05-07] MEDS: ROBITUSSIN AC 10 ML PO (11:20)
[2024-05-07] MEDS: DECADRON 6 MG IV (11:20)
[2024-05-07] MEDS: DUONEB 3 ML INH ×2 (11:21→13:50)
[2024-05-07 11:36] VITALS: BP 108/60
[2024-05-07 11:36] LABS: % Basophils 0.5 % (0-2); % Eosinophils 0.7 % (0-6); % Immature Granulocytes 0.4 % (0-0.5); % Lymphocytes 13.7 % (20.5-51.1); % Monocytes 12.9 % (1.7-9.3); % Neutrophils 71.8 % (42.2-75.2); Absolute Eosinophils 0.1 10^3/uL (0-0.7); Absolute Neutrophils 5.4 10^3/uL (1.4-6.5); Hematocrit 39.2 % (37.0-47.0); Hemoglobin 13.3 g/dL (12.0-16.0); Mean Corp Hgb Conc. 33.9 g/dL (33.0-37.0); Mean Corpuscular Volume 91.4 fL (81.0-99.0); Nucleated Red Blood Cells % 0 %; Platelet Count 251 10^3/uL (130-400); Red Blood Cell Count 4.29 10^6/uL (4.20-5.40); Red Cell Dist. Width 13.2 % (11.5-14.5); White Blood Cell Count 7.5 10^3/uL (4.8-10.8)
[2024-05-07 12:00] VITALS: BP 108/56
[2024-05-07 12:03] LABS: Blood Urea Nitrogen 20 mg/dl (7-17); Calcium 8.6 mg/dl (8.4-10.2); Carbon Dioxide 23 mmol/L (22-30); Chloride 101 mmol/L (98-107); Estimated Creatinine Clearance 72 ml/min; Glucose 115 mg/dl (70-99); Sodium 135 mmol/L (135-145); eGFR > 60.00
[2024-05-07 12:10] LABS: COVID-19 Antigen Negative (Negative)
[2024-05-07 13:00] VITALS: BP 111/60
[2024-05-07 14:00] VITALS: BP 116/49
== END 2024-05-07 15:20 | disposition home or self-care (01) ==
LOC: EMR 10:14
PROVIDERS: EMERGENCY PHYSICIAN Emergency Medicine; FAMILY PHYSICIAN Internal Medicine
DX: J40 Bronchitis, not specified as acute or chronic (principal); I10 Essential (primary) hypertension; E78.00 Pure hypercholesterolemia, unspecified; E03.9 Hypothyroidism, unspecified; Z90.49 Acquired absence of other specified parts of digestive tract
CPT/HCPCS: 99284; 94640; 96374; 71046; 80048; 85025; 87502; 87807; 87811

== ENCOUNTER 2024-11-14 00:33 | Emergency (ER) | payer OTHER, SELFPAY ==
[2024-11-14 00:39] VITALS: BP 127/88
[2024-11-14 01:07] LABS: Hematocrit 43.4 % (37.0-47.0); Hemoglobin 15.2 g/dL (12.0-16.0); Mean Corp Hgb Conc. 35.0 g/dL (33.0-37.0); Mean Corpuscular Volume 90.0 fL (81.0-99.0); Nucleated Red Blood Cells % 0 %; Platelet Count 288 10^3/uL (130-400); Red Cell Dist. Width 12.7 % (11.5-14.5)
[2024-11-14 01:21] LABS: ALT (SGPT) 28 U/L (0-35); AST (SGOT) 28 U/L (14-36); Albumin 4.6 g/dl (3.5-5.0); Alkaline Phosphatase 66 U/L (38-126); Blood Urea Nitrogen 17 mg/dl (7-17); Calcium 9.6 mg/dl (8.4-10.2); Carbon Dioxide 27 mmol/L (22-30); Chloride 105 mmol/L (98-107); Glucose 147 mg/dl (70-99); Lipase 81 U/L (23-300); Potassium 4.0 mmol/L (3.5-5.1); Sodium 142 mmol/L (135-145); Total Protein 7.6 g/dl (6.3-8.2); eGFR > 60.00
[2024-11-14 01:45] LABS: Urine Character Clear (Clear)
[2024-11-14 03:00] VITALS: BP 101/45
[2024-11-14 03:24] LABS: Urine Squamous Cell >30 /LPF (Few)
[2024-11-14 03:25] LABS: Urine Red Blood Cell None Seen /HPF (0-2)
[2024-11-14 03:51] VITALS: BMI 42.7
--- NOTE | 2024-11-14 03:51 | ED.GENMED ---
History of Present Illness
General
Chief Complaint: Abdominal Symptoms
Source: patient
Time Seen by Provider: 11/14/24 03:17
History of Present Illness
History of Present Illness:
73-year-old female presents to the emergency room complaining of jarett pain, constipation, nausea vomiting. Patient has not had a normal bowel movement past 3 days. Today she took Dulcolax stool softeners. Shortly after she had nausea and
vomiting. She vomited 2-3 times a day. Patient has had issues with constipation in the past. No fever or chills. Patient had appendectomy when she was 10 otherwise no abdominal surgery.
Past History
Past History
ED Past Medical History: HTN, Hypercholesterolemia and Hypothyroidism
ED Past Surgical History: Appendectomy, Orthopedic and Other
Social History
Tobacco: Non-smoker
Alcohol: None
Drug: None
Personal:
Living: with family
Phy Exam
Physical Exam
Physical Exam:
General: Awake, Alert, Oriented X3. No acute distress.
Vitals: unremarkable
Head: Atraumatic
Eyes: Pupils equal, EOMI
Throat: Airway intact, no exudates
Neck: Trachea midline
Lungs: Clear and equal b/l
Heart: Regular rate, no murmurs
Abd: Soft, tender to palpation left lower quadrant primarily, No pulsatile mass
Rectal: No fecal impaction
Neuro: Nonfocal
Skin: Warm, dry, no rash
Extremities: pulses equal b/l, no edema
Course
Orders/Labs/Results
Orders:
Orders
11/14/24 00:58
Complete Blood Count/With Diff Urgent
Comprehensive Metabolic Panel Urgent
Lipase Urgent
Urinalysis Reflex To Culture Urgent
Date Specimen was Collected: 11/14/24
Time Specimen was Collected: 00:44
Urine Microscopic Reflex Cult Urgent
Urine Culture Urgent
MAYRA Source: U
Specimen Description:
Date Specimen was Collected: 11/14/24
Time Specimen was Collected: 00:44
11/14/24 03:50
CT Abd/Pel (IV only)-DH only Urgent
Comment:
Reason For Exam: lower abd pain
Ketorolac [Toradol] 15 mg IV NOW STA
11/14/24 03:51
Ondansetron Injectable [Zofran] 4 mg IV NOW STA
Abnormal Lab Results
11/14/24
00:58
WBC 11.6 H 10^3/uL
(4.8-10.8)
MCH 31.5 H pg
(27.0-31.0)
MPV 11.5 H fL
(7.4-10.4)
Absolute Neuts (auto) 9.4 H 10^3/uL
(1.4-6.5)
Neutrophils % 81.0 H %
(42.2-75.2)
Lymphocytes % 12.5 L %
(20.5-51.1)
Glucose 147 H mg/dl
(70-99)
Leukocyte Esterase Rfl 1+ A
(Negative)
Urine Bacteria (Reflex) Few A
(Negative)
Urine Albumin (Reflex) 3+ A
(Neg - Trace)
11/14/24 00:58
11/14/24 00:58
Vital Signs
Initial and Last Documented VS:
Initial Vital Signs
Temp Pulse Resp BP Pulse Ox
97.9 F 86 20 127/88 95
11/14/24 00:39 11/14/24 00:39 11/14/24 00:39 11/14/24 00:39 11/14/24 00:39
Last Documented Vital Signs
Temp Pulse Resp BP Pulse Ox
97.9 F 76 18 101/45 97
11/14/24 00:39 11/14/24 05:00 11/14/24 05:00 11/14/24 03:00 11/14/24 05:00
MDM/Problems Addressed
Differential Diagnosis Includes:
Diverticulitis, constipation, ileus or bowel obstruction
MDM/Problems Addressed:
Patient presents with constipation, nausea vomiting. Patient has not had a bowel movement for 3 to 4 days. This is an issue that she is experience intermittently. She is not very good with drinking enough fluid or taking fiber or initiating
laxatives early on in process and has ended up in the emergency room due to similar symptoms. Patient had an appendectomy when she was 10 but otherwise no abdominal surgery. Her abdominal exam indicates some lower tenderness but no significant
distention. Rectal exam shows no impaction. CT shows no evidence of diverticulitis. Will initiate MiraLAX. Follow-up with primary care provider.
*Pulse Oximetry
SaO2: 95
Oxygen Mode of Delivery: Room air
Patient hypoxic: no
*Critical Care Note
Total Time (30-74mins, 75-104mins- exclusive of procedures): Not Applicable
ED Attending Note
-
Portions of this chart may have been created with voice recognition software.� Occasional wrong word or��sound alike� substitutions may have occurred due to the inherent limitations of voice recognition software.
Discharge Plan
Departure
Patient Disposition: Home (Routine Discharge)
Date of Disposition: 11/14/24
Time of Disposition: 06:14
Patient with high blood pressure during this ER visit?: No
Condition: Good
Discharge Problem:
Constipation
Instructions: Constipation, Adult (DC)
Prescriptions:
No Action
levothyroxine [Synthroid] 137 mcg Tablet
137 mcg PO DAILY
atorvastatin [Lipitor] 20 mg Tablet
20 mg PO DAILY
metoprolol succinate [Toprol XL] 100 mg Tablet Extended Release 24 Hr
100 mg PO DAILY
amlodipine [Norvasc] 5 mg Tablet
5 mg PO BID
losartan-hydrochlorothiazide 100-25 mg Tablet
1 tab PO DAILY
Cosentyx 150 mg/mL Syringe
150 mg SC Q4W
Incruse Ellipta 62.5 mcg/actuation Blister With Device
1 inh INHALATION DAILY
Referrals:
Satya Amado MD [Family Provider, Internal Medicine]
Activity Restrictions/Additional Instructions:
Treat constipation with Miralax, 1 capful in an 8oz glass of clear liquid once a day.
Interventions
Interventions:
*Risk Screen - Suicide Last Done: 11/14/24 00:39
*General Assessment Last Done: 11/14/24 00:39
*Neglect/Abuse Screening Last Done: 11/14/24 00:39
*ED- Fall Risk Assessment Last Done: 11/14/24 00:39
*ED COVID-19 Vaccine History Last Done: 11/14/24 00:39
OB-Wpdile-[id number] Assessment Last Done: 11/14/24 04:47
Discharge Date and Time
Print Language: INDONESIAN
[2024-11-14] MEDS: TORADOL 15 MG IV (04:23)
[2024-11-14] MEDS: ZOFRAN 4 MG IV (04:23)
[2024-11-14 06:36] VITALS: BP 110/58
== END 2024-11-14 06:38 | disposition home or self-care (01) ==
LOC: EMR 00:33
PROVIDERS: EMERGENCY PHYSICIAN Emergency Medicine; FAMILY PHYSICIAN Internal Medicine
DX: K59.00 Constipation, unspecified (principal); I10 Essential (primary) hypertension; E78.00 Pure hypercholesterolemia, unspecified; E03.9 Hypothyroidism, unspecified
CPT/HCPCS: 99284; 96374; 96375; 74177; 80053; 81003; 81015; 83690; 85025; 87086; Q9967